=== PATIENT | male | born 1965 | race Caucasian/White ===

== ENCOUNTER → 2022-04-20 12:43 | Outpatient (BNVA) | payer OTHER, SELFPAY | PROVIDERS: Visit Provider Internal Medicine Rheumatology | DX: M19.90 Unspecified osteoarthritis, unspecified site (principal); Z79.899 Other long term (current) drug therapy; Z11.59 Encounter for screening for other viral diseases; R76.8 Other specified abnormal immunological findings in serum; M25.50 Pain in unspecified joint; M18.0 Bilateral primary osteoarthritis of first carpometacarpal joints | CPT/HCPCS: 80076; 82565; 85025; 85651; 86140; 86200; 86704; 86803; 87340 ==